=== PATIENT | male | born 1995 | race American Indian/Alaskan Native ===

== ENCOUNTER 2019-03-10 10:37 | Emergency (ER) | payer SELFPAY ==
--- NOTE | 2019-03-10 12:37 | Emergency Department Report ---
ED Psych HPI - General Chief Complaint: Altered Mental Status Stated Complaint: JON FONTAINE Time Seen by Provider: 03/10/19 11:47 Source: patient Mode of arrival: Ambulatory - History of Present Illness Initial Comments: 23-year-old male patient without significant past medical history presents with multiple complaints of funny feeling in his head months he admits to visual hallucinations and intermittent thoughts of suicide. He denies homicidal ideations and states that he wants to hurt people with his words. Patient also states he wants to get checked for schizophrenia. He denies having a plan for suicide MD Complaint: suicidal ideation -: Gradual - Related Data Allergies Allergy/AdvReac Type Severity Reaction Status Date / Time No Known Allergies Allergy Unverified 03/10/19 10:43 ED Review of Systems ROS: Stated complaint: JON EVAL Other details as noted in HPI Comment: All other systems reviewed and negative Neurological: denies: headache, weakness, numbness, abnormal gait Psychiatric: as per HPI ED Past Medical Hx - Past Medical History Previous Medical History?: No - Surgical History Past Surgical History?: No ED Physical Exam - General Limitations: No Limitations General appearance: alert, in no apparent distress - Head Head exam: Present: atraumatic, normocephalic - Eye Eye exam: Present: normal appearance, PERRL, EOMI - Respiratory Respiratory exam: Present: normal lung sounds bilaterally. Absent: respiratory distress, wheezes, rales, rhonchi - Cardiovascular Cardiovascular Exam: Present: regular rate, normal rhythm, normal heart sounds. Absent: systolic murmur, diastolic murmur, rubs, gallop - GI/Abdominal GI/Abdominal exam: Present: soft, normal bowel sounds. Absent: tenderness - Neurological Exam Neurological exam: Present: alert, oriented X3, CN II-XII intact, normal gait, motor sensory deficit - Psychiatric Psychiatric exam: Present: normal mood, suicidal ideation. Absent: agitated - Skin Skin exam: Present: warm, dry, intact, normal color. Absent: rash ED Medical Decision Making - Lab Data Result diagrams: 03/10/19 12:31 03/10/19 12:30 - Medical Decision Making Patient on 1013 for SI and hallucinations. Patient noted to have a gun present on him in the ED. Patient is medically cleared for transport to mental health facility. Critical care attestation.: If time is entered above; I have spent that time in minutes in the direct care of this critically ill patient, excluding procedure time. ED Disposition Clinical Impression: Suicidal ideation, Hallucinations, visual Disposition: [id number] PSY HOSP/PSY UNIT Is pt being admited?: No Condition: Stable Referrals: PRIMARY CARE, [Primary Care Provider] - 3-5 Days
[2019-03-10 12:45] LABS: Basophils % (Auto) 0.5 % (0.0-1.8); Eosinophils # (Auto) 0.1 K/mm3 (0.0-0.4); Eosinophils % (Auto) 1.1 % (0.0-4.3); Hematocrit 40.1 % (35.5-45.6); Hemoglobin 13.9 gm/dl (11.8-15.2); Lymphocytes # (Auto) 1.7 K/mm3 (1.2-5.4); Lymphocytes % (Auto) 33.3 % (13.4-35.0); Mean Corpuscular HGB Conc 35 % (32-34); Mean Corpuscular Volume 90 fl (84-94); Monocytes # (Auto) 0.4 K/mm3 (0.0-0.8); Monocytes % (Auto) 7.1 % (0.0-7.3); Platelet Count 179 K/mm3 (140-440); Red Blood Count 4.45 M/mm3 (3.65-5.03); Red Cell Distribution Width 13.4 % (13.2-15.2)
[2019-03-10 13:10] LABS: BUN/Creatinine Ratio 13; Blood Urea Nitrogen 12 mg/dL (9-20); Calcium 8.9 mg/dL (8.4-10.2); Hemolysis Index 13
[2019-03-10 13:21] LABS: Bilirubin,Urine NEG (Negative); Blood,Urine NEG (Negative); Color,Urine Yellow (Yellow); Mucus,Urine FEW /HPF; Protein,Urine <15 mg/dL mg/dL (Negative); Urobilinogen,Urine < 2.0 mg/dL (<2.0)
[2019-03-10 13:29] LABS: Amphetamine Screen,Urine PRESUMPTIVE NEGATIVE; Benzodiazepines Screen,Urine PRESUMPTIVE NEGATIVE; Cannabinoid Screen,Urine PRESUMPTIVE NEGATIVE; Cocaine Screen,Urine PRESUMPTIVE NEGATIVE; Methadone Screen,Urine PRESUMPTIVE NEGATIVE; Opiate Screen,Urine PRESUMPTIVE NEGATIVE
--- NOTE | 2019-03-10 15:06 | Cat Scan Report ---
CT HEAD WITHOUT CONTRAST INDICATION / CLINICAL INFORMATION: headache, hallucinations. TECHNIQUE: Axial imaging performed from the skull apex through the skull base without the use of cont rast. Sagittal and coronal reformatted images. All CT scans at this location are performed using CT dose reduction for ALARA by means of automated exposure control. COMPARISON: None available. FINDINGS: CEREBRAL PARENCHYMA: No significant abnormality. No acute territorial infarct. HEMORRHAGE: None. EXTRA-AXIAL SPACES: Normal in size and morphology for the patient's age. VENTRICULAR SYSTEM: Normal in size and morphology for the patient's age. MIDLINE SHIFT OR HERNIATION: None. CEREBELLUM / BRAINSTEM: No significant abnormality. CALVARIUM: No significant abnormality. ORBITS: Normal as visualized. PARANASAL SINUSES / MASTOID AIR CELLS: Normal as visualized. SOFT TISSUES of HEAD: No significant abnormality. ADDITIONAL FINDINGS: None. IMPRESSION: No acute intracranial abnormality. Unremarkable CT head. Signer Name: Mario Banks Jr, MD Signed: 03/10/2019 3:02 PM Workstation Name: [id number]
--- NOTE | 2019-03-11 11:55 | Consultation ---
History of Present Illness - Reason for Consult Consult date: 03/11/19 Reason for consult: Mental Health Evaluation Requesting physician: RICH CLARK - Chief Complaint Chief complaint: "I need help for my brain cancer" - History of Present Psychiatric Illness 23 y.o. AA male who presented to the ER for bizarre behavior. The was found to have a gun on his possession by security. Today the patient was calm, but disorganized during the assessment. He is adamant that he have "brain cancer." He stated that the cancer could stem from Schizophrenia. He was asked about why he was carrying a gun, he stated, "Because I was riding the bus, I need protection." Most of his answers to questions were not logical. He did state that his family wanted him to get "checked out at the ER." Overall, the patient is a poor historian at this time. No gestures of SI/HI's. Medications and Allergies Allergies Allergy/AdvReac Type Severity Reaction Status Date / Time No Known Allergies Allergy Unverified 03/10/19 10:43 Home Medications Medication Instructions Recorded Confirmed Last Taken Type No Known Home Medications [No 03/10/19 03/10/19 Unknown History Reported Home Medications] Past psychiatric history - Past Medical History Past Medical History: No medical history Past Surgical History: No surgical history - past Psychiatric treatment and history psychiatric treatment history: Denies a psy hx and a fam psy hx. - Social History Social history: lives with family Mental Status Exam - Vital signs Last Vital Signs Temp 98.3 F 03/11/19 09:33 Pulse 94 H 03/11/19 09:33 Resp 16 03/10/19 19:50 BP 87/62 03/11/19 09:33 Pulse Ox 97 03/11/19 09:33 - Exam Narrative exam: MSE: Appearance: calm Behavior: regular eye contact Speech: regular rate and tone Mood: "okay" Affect: congruent to mood Thought Process: circumstantial Thought Content: denies SI/HI's and AVH's, delusional, paranoia Motor Activity: lying in bed Cognition: A/O x 3 Insight: variable Judgment: poor Results Result Diagrams: 03/10/19 12:31 03/10/19 12:30 Abnormal lab results 03/10/19 03/10/19 03/10/19 Range/Units 12:30 12:30 12:31 MCHC 35 H (32-34) % Salicylates < 0.3 L (2.8-20.0) mg/dL Acetaminophen < 5.0 L (10.0-30.0) ug/mL All other labs normal. Assessment and Plan Assessment and plan: Impression: Unspecified Psychosis. Today the patient was calm, but disorganized during the assessment. UDS is negative. DDx: Schizophrenia, Bipolar DO with psychosis Recommendations/Plan: Continue 1013 and start Geodon 20 mg PO BID for psychosis and Cogentin 0.5 mg PO BID for EPS prevention. Discussed possible metabolic side effects of Geodon with the patient, he verbalized understanding. Baseline A1c/Lipid Panel ordered for the AM. Dipso: The patient was referred to inpatient psy services. Will staff with Dr Carlitos De Los Santos.
[2019-03-11] MEDS: COGENTIN PO SCH ×2 (14:10→22:05)
[2019-03-11] MEDS: GEODON PO SCH ×2 (14:10→22:05)
[2019-03-12 07:34] LABS: Chol/HDL Ratio 3.88 %
[2019-03-12] MEDS: COGENTIN PO SCH ×2 (11:00→21:52)
[2019-03-12] MEDS: GEODON PO SCH ×2 (11:00→21:52)
--- NOTE | 2019-03-12 14:28 | Progress Note ---
Subjective - Reason for Consult Consult date: 03/12/19 Reason for consult: Psychiatric Follow-up Evaluation - Chief Complaint Chief complaint: "I feel sick." Patient is a 23 y.o. AA male who presented to the ER for bizarre behavior. The patient was found to have a gun on his possession by security. Today the patient is calm and cooperative during the assessment. He states, " I'm here because my parents wanted me to have an evaluation. My dad thinks something is wrong with me because I forget things and talk to myself. I think I have schizophrenia." Throughout the assessment patient thought process is impoverished but tangent. Appears to have somatic delusions. Patient denies SI/HI's, A/VH's, and delusions. Patient is very guarded. He reports medication compliance. No side effects noted/reported. Mental Status Exam - Vital signs Last Vital Signs Temp 97.9 F 03/12/19 07:00 Pulse 111 H 03/12/19 07:00 Resp 20 03/12/19 07:00 BP 96/67 03/12/19 07:00 Pulse Ox 100 03/12/19 07:00 - Exam Narrative exam: Mental Status Exam Appearance: calm Behavior: regular eye contact Speech: regular rate and tone Mood: "I feel sick"; anxious Affect: congruent to mood Thought Process: circumstantial Thought Content: denies SI/HI's and AVH's; paranoid/somatic delusions Motor Activity: ambulatory Cognition: A/O x 3 Insight: variable Judgment: poor Assessment and Plan Impression: Unspecified Psychosis. Today the patient is calm and cooperative during the assessment. Paranoid/somatic delusions are noted. UDS is negative. DDx: Schizophrenia, Bipolar DO with psychosis Recommendations/Plan: 1. Continue 1013. 2. Continue Geodon 20 mg PO BID for psychosis and Cogentin 0.5 mg PO BID for EPS prevention. Discussed possible metabolic side effects of Geodon with the patient, he verbalized understanding. Baseline A1c/Lipid Panel ordered for the AM. Disposition: The patient was referred to inpatient psy services. Will staff with Dr. Carlitos De Los Santos.
[2019-03-13] MEDS: GEODON PO SCH ×2 (09:48→22:21)
[2019-03-13] MEDS: COGENTIN PO SCH ×2 (09:48→22:21)
--- NOTE | 2019-03-13 10:02 | Progress Note ---
Subjective - Reason for Consult Consult date: 03/13/19 Reason for consult: Psychiatry Follow-up - Chief Complaint Chief complaint: "My brain is the issue" Patient is a 23 y.o. AA male who presented to the ER for bizarre behavior. The patient was found to have a gun on his possession by security. Today the patient is calm, but tangent during the assessment. He continue to state that his "brain" is the problem. He could not elaborate more about his "brain" when asked. He denies SI/HI's and AVH's. No indications of side effects from his medication. Mental Status Exam - Vital signs Last Vital Signs Temp 97.7 F 03/13/19 08:53 Pulse 71 03/13/19 08:53 Resp 18 03/13/19 08:53 BP 108/75 03/13/19 08:53 Pulse Ox 99 03/13/19 08:53 - Exam Narrative exam: MSE: Appearance: calm Behavior: regular eye contact Speech: regular rate and tone Mood: "okay" Affect: congruent to mood Thought Process: tangential Thought Content: denies SI/HI's and AVH's, delusional Motor Activity: lying in bed Cognition: A/O x 3 Insight: poor Judgment: poor Assessment and Plan Impression: Unspecified Psychosis. Today the patient was calm, but tangent during the assessment. UDS is negative. DDx: Schizophrenia, Bipolar DO with psychosis Recommendations/Plan: Continue 1013, Geodon 20 mg PO BID for psychosis, and Cogentin 0.5 mg PO BID for EPS prevention. Discussed possible metabolic side effects of Geodon with the patient, he verbalized understanding. Dipso: The patient was referred to inpatient psy services. Will staff with Dr Carlitos De Los Santos.
[2019-03-14 07:53] VITALS: BP 108/79
--- NOTE | 2019-03-14 09:18 | Progress Note ---
Subjective - Reason for Consult Consult date: 03/14/19 Reason for consult: Psychiatry Follow-up - Chief Complaint Chief complaint: "Colton" Patient is a 23 y.o. AA male who presented to the ER for bizarre behavior. The patient was found to have a gun on his possession by security. Today the patient is calm, but still tangent during the assessment. He appeared somewhat preoccupied during the assessment. Overall, the patient's presentation have not changed. He denies SI/HI's and AVH's. No indications of side effects from his medication. Mental Status Exam - Vital signs Last Vital Signs Temp 98.0 F 03/14/19 07:00 Pulse 117 H 03/14/19 07:00 Resp 18 03/14/19 07:00 BP 108/79 03/14/19 07:00 Pulse Ox 99 03/14/19 07:00 - Exam Narrative exam: MSE: Appearance: calm Behavior: regular eye contact Speech: regular rate and tone Mood: "not so good" Affect: congruent to mood Thought Process: tangential Thought Content: denies SI/HI's and AVH's, delusional Motor Activity: lying in bed Cognition: A/O x 3 Insight: poor Judgment: poor Assessment and Plan Impression: Unspecified Psychosis. Today the patient was calm, but tangent during the assessment. UDS is negative. DDx: Schizophrenia, Bipolar DO with psychosis Recommendations/Plan: Continue 1013 and increase Geodon to 40 mg PO BID for psychosis. Continue Cogentin 0.5 mg PO BID for EPS prevention. Discussed possible metabolic side effects of Geodon with the patient, he verbalized understanding. Dipso: The patient was accepted at [facility] for inpatient psy services pending transport time. Staffed with Dr Carlitos De Los Santos.
[2019-03-14] MEDS ORDERED: GEODON PO SCH (10:00)
[2019-03-14] MEDS: COGENTIN PO SCH (10:00)
== END 2019-03-14 10:00 ==
LOC: ED 10:37 → EEVIPCON 10:37 → ED 03-14 10:00
DX: R44.1 Visual hallucinations (principal); R45.851 Suicidal ideations
CPT/HCPCS: 36415; 70450; 80048; 80061; 80307; 80320; 81001; 83036; 85025; G0480